=== PATIENT | female | born 1985 | race Caucasian/White ===

== ENCOUNTER 2017-06-14 20:56 | Inpatient (IN) | payer OTHER ==
[~2017-06-14] VITALS: Ht 165.1 cm; Wt 58.5 kg
[~2017-06-14 20:56] MED LIST: FERROUS SULFAT325 MG PO; KEFLEX500 MG PO; PRENATAL TABLE1 EAC1 PO
[2017-06-20] MEDS ORDERED: KEFLEX500 MG PO (11:16)
[2017-06-20] MEDS ORDERED: IRON325 MG PO (11:16)
== END 2017-06-20 11:49 | DRG 775 ==
LOC: LDR 20:56 → OB/GYN 06-15 20:17 → LDR 06-15 20:51 → OB/GYN 06-17 08:51
PROC: 4A1HXCZ Monitoring of Products of Conception, Cardiac Rate, External Approach (ICD-10-PCS; 2017-06-14)
PROC: BY4FZZZ Ultrasonography of Third Trimester, Single Fetus (ICD-10-PCS; 2017-06-15)
PROC: 10E0XZZ Delivery of Products of Conception, External Approach (ICD-10-PCS; principal; 2017-06-17)
PROC: 0KQM0ZZ Repair Perineum Muscle, Open Approach (ICD-10-PCS; 2017-06-17)
PROC: 4A033R1 Measurement of Arterial Saturation, Peripheral, Percutaneous Approach (ICD-10-PCS; 2017-06-17)
DX: O60.14X0 Preterm labor third trimester with preterm delivery third trimester, not applicable or unspecified (principal); O42.113 Preterm premature rupture of membranes, onset of labor more than 24 hours following rupture, third trimester; O70.1 Second degree perineal laceration during delivery; Z37.0 Single live birth; Z3A.35 35 weeks gestation of pregnancy